=== PATIENT | male | born 1955 | race Caucasian/White ===

== ENCOUNTER 2021-08-05 08:51 | Day surgery (SDC) | payer MEDICARE, OTHER ==
[~2021-08-05] VITALS: Ht 185.4 cm; Wt 93.9 kg
[~2021-08-05 08:51] MED LIST: DEPO-TESTO200 MG/1 M; FAMO10 PO; HYDACE5 PO; NAPR500 PO; PROM25 PO
[2021-08-05] MEDS ORDERED: Aspirin325 MG (10:01)
== END 2021-08-05 11:44 | disposition home or self-care (01) ==
LOC: ORSCSDS 08:51
PROVIDERS: Internal Medicine Gastroenterology
PROC: 0DBK8ZX Excision of Ascending Colon, Via Natural or Artificial Opening Endoscopic, Diagnostic (ICD-10-PCS; principal; 2021-08-05 10:30)
PROC: 0DBC8ZX Excision of Ileocecal Valve, Via Natural or Artificial Opening Endoscopic, Diagnostic (ICD-10-PCS; principal; 2021-08-05 10:30)
PROC: 0DBN8ZX Excision of Sigmoid Colon, Via Natural or Artificial Opening Endoscopic, Diagnostic (ICD-10-PCS; principal; 2021-08-05 10:30)
PROC: 0DBM8ZX Excision of Descending Colon, Via Natural or Artificial Opening Endoscopic, Diagnostic (ICD-10-PCS; principal; 2021-08-05 10:30)
DX: Z12.11 Encounter for screening for malignant neoplasm of colon (principal); Z86.010 Personal history of colon polyps; D12.5 Benign neoplasm of sigmoid colon; D12.0 Benign neoplasm of cecum; D12.2 Benign neoplasm of ascending colon; D12.4 Benign neoplasm of descending colon; K57.30 Diverticulosis of large intestine without perforation or abscess without bleeding; K64.8 Other hemorrhoids; E11.9 Type 2 diabetes mellitus without complications; G47.30 Sleep apnea, unspecified; Z79.899 Other long term (current) drug therapy
CPT/HCPCS: 82947; 88305; J2704; J7120

== ENCOUNTER 2022-01-26 10:21 | Inpatient (IN) | payer MEDICARE, OTHER ==
[~2022-01-26] VITALS: Ht 185.4 cm; Wt 96.2 kg
[~2022-01-26 10:21] MED LIST changes: +Aspirin325 MG
[2022-01-26] MEDS ORDERED: METFORMIN HCL500 M3 PO (10:48)
[2022-01-26 10:55] LABS: BASOPHILS ABSOLUTE AUTO 0.07 K/mm3 (0.00-0.23); BASOPHILS PERCENT AUTO 1 % (0-2); EOSINOPHILS ABSOLUTE AUTO 0.32 K/mm3 (0.00-0.68); EOSINOPHILS PERCENT AUTO 5 % (0-6); Hematocrit 49.1 % (37.0-53.0); Hemoglobin 16.9 g/dL (13.5-17.5); IMMATURE GRAN ABSOLUTE AUTO 0.05 K/mm3 (0.00-0.10); IMMATURE GRAN PERCENT AUTO 1 % (0-1); LYMPHOCYTES ABSOLUTE AUTO 1.87 K/mm3 (0.84-5.20); LYMPHOCYTES PERCENT AUTO 30 % (21-46); MONOCYTES ABSOLUTE AUTO 0.67 K/mm3 (0.16-1.47); MONOCYTES PERCENT AUTO 11 % (4-13); Mean Corpuscular HGB 32.4 pg (26.0-34.0); Mean Corpuscular HGB Conc 34.4 g/dL (31.5-36.5); Mean Corpuscular Volume 94 fL (80-100); Mean Platelet Volume 10.5 fL (9.1-12.4); NEUTROPHILS ABSOLUTE AUTO 3.32 K/mm3 (1.96-9.15); NEUTROPHILS PERCENT AUTO 53 % (41-73); Platelet Count 165 K/mm3 (150-400); RDW Coefficient Variation 12.4 % (11.7-14.2); Red Blood Cell Count 5.22 M/mm3 (4.30-5.90)
[2022-01-26 10:55] LABS: Calcium, Ionized (POC) 1.16 mmol/L (1.10-1.46); Chloride (POC) 101 mmol/L (98-108); Glucose (ISTAT POC) 251 mg/dL (70-99); Potassium (POC) 3.9 mmol/L (3.5-5.5); Sodium (POC) 137 mmol/L (135-148); Total CO2 (POC) 25 mmol/L (21-32)
[2022-01-26 11:09] LABS: International Normalized Ratio 0.98; Prothrombin Time Results 10.3 Sec (9.7-11.5)
[2022-01-26 11:42] LABS: Albumin, Blood 4.1 g/dL (3.4-5.0); Albumin/Globulin Ratio 1.2 (0.8-1.8); Bilirubin, Total 0.8 mg/dL (0.1-1.0); Bun/Creatinine Ratio 21.6 (12.0-20.0); Calcium, Blood 9.8 mg/dL (8.5-10.1); Creatinine, Blood 0.97 mg/dL (0.60-1.20); Globulin, Blood 3.4 g/dL (2.2-4.0); Total Protein, Blood 7.5 g/dL (6.4-8.2)
--- NOTE | 2022-01-26 12:46 | NUR ---
ASSUMED CARE OF PT AT 1246. PT IS ALERT AND ORIENTED X4, ABLE TO RECALL RECENT AND REMOTE EVENTS. PT DENIES ANY CHEST PAIN AT THIS TIME. POST STENT PLACEMENT EKG OBTAINED, IN CHART. PT IS IN SR WITH HR IN THE 60-70'S, BLOOD PRESSURE IS STABLE. TR BAND TO RIGHT RADIAL ACCESS SITE PRESENT AND INFLATED, NO ACTIVE BLEEDING, SWELLING NOTED. PT DENIES ANY NUMBNESS/TINGLING TO RIGHT HAND AND DIGITS, GOOD CAP REFILL PRESENT. SHEATH TO RIGHT GROIN PRESENT WITH NS/HEPARIN TKO VIA PRESSURE BAG. SHEATH TO BE REMOVED ONCE PTT IS LESS THAN 40. NO ACTIVE BLEEDING/SWELLING TO RIGHT GROIN NOTED. PT ON RA WITH SPO2 ABOVE 90%, LUNG SOUNDS CLEAR T/O . PT USING URINAL AT BEDSIDE WITH ASSISTANCE. PT EDUCATED ON LIMB RESTRICTIONS. PT ORIENTED TO THE ROOM AND CALL LIGHT. BED AT LOWEST LEVEL WILL CONTINUE TO MONITOR PT T/O SHIFT
[2022-01-26] MEDS ORDERED: D3-5000125 MCG PO (13:17)
--- NOTE | 2022-01-26 18:40 | NUR ---
SHIFT SUMMARY: PT CONTINUES TO BE ALERT AND ORIENTED X4. PT CONTINUES TO DENY SOB/CHEST PAIN. PT ON RA, NO RESP DISTRESS NOTED AT THIS TIME. PT IN SR WITH HR IN THE 60-70'S. RIGHT GROIN SHEATH REMOVED AT 1807, MANUAL PRESSURE USED, HEMOSTASIS ACHEIVED AT 1830, SITE DRESSED WITH TEGADERM, NO ACTIVE BLEEDING, SWELLING OR HEMATOMA NOTED. TR BAND DEFLATED TO ZERO AT 1845 RIGHT RADIAL SITE, WILL PLACE TEGADERM DRESSING, NO ACTIVE BLEEDING OR HEMATOMA NOTED. PT DENIES ANY NUMBNESS/TINGLING TO RIGHT LEG AND RIGHT HAND. +2 PULSE TO RIGHT PEDAL SITE. PT ATE 75% OF DINNER, TOLERATING DIET AND THIN LIQUIDS AT THIS TIME, ACTIVE BOWEL TONES IN ALL QUADRANTS. PT USING URINAL W/O ISSUES. SISTER AT BEDSIDE. PT EDUCATED ON LIMB RESTRICTIONS. WILL CONTINUE TO MONITOR PT UNTIL REPORT IS GIVEN TO ONCOMING SHIFT.
--- NOTE | 2022-01-26 20:00 | NUR ---
ASSUMED CARE OF PT AT 1915. REPORT RECEIVED AT BEDSIDE. PT PRESENTS IN BED. SUPINE. RIGHT GROIN SITE WITHOUT OOZING OR HEMATOMA. RIGHT RADIAL SITE WITH TR BAND IN PLACE DEFLATED. NO OOZING OR HEMATOMA NOTED. DENIES CHEST PAIN OR PRESSURE. DID DO SOME TEACHING ON STENTS, AND STEMI. WILL REVIEW CHART AND PLAN OF CARE FOR THIS PT.
--- NOTE | 2022-01-26 23:22 | NUR ---
TEGRADERM PLACED OVER RADIAL PUNCTURE SITE. NO HEMATOM OR OOZING TO THIS SITE OR TO RIGHT GROIN SITE. WILL CONTINUE TO MONITOR. PT ABLE TO VOID Q.S. URINE USING URINAL.
--- NOTE | 2022-01-27 01:25 | NUR ---
PT COMPLETES RESTRICTION OF BEING SUPINE POST SHEATH REMOVAL. PT HAS ORTHOSTATIC BLOOD PRESSURES DONE. SEE FLOWSHEET FOR DETAILS. PT UP AND HAS AMBULATED IN HALLWAY WITH STANDBY. NO CHEST PAIN OR PRESSURE. NO DYSPNEA. AFTER RETURNING TO BED. GROIN AND RADIAL SITES CHECKED. NO HEMATOMA OR OOZING FROM SITES.
[2022-01-27 04:40] LABS: Hematocrit 43.8 % (37.0-53.0); Hemoglobin 14.7 g/dL (13.5-17.5); Mean Corpuscular HGB 32.7 pg (26.0-34.0); Mean Corpuscular HGB Conc 33.6 g/dL (31.5-36.5); Mean Corpuscular Volume 98 fL (80-100); Mean Platelet Volume 10.4 fL (9.1-12.4); Platelet Count 127 K/mm3 (150-400); RDW Coefficient Variation 12.5 % (11.7-14.2); RDW Standard Deviation 45.4 fL (35.1-46.3); Red Blood Cell Count 4.49 M/mm3 (4.30-5.90)
[2022-01-27 05:08] LABS: Bun/Creatinine Ratio 27.4 (12.0-20.0); Calcium, Blood 8.8 mg/dL (8.5-10.1); Creatinine, Blood 0.84 mg/dL (0.60-1.20); Potassium, Blood 4.1 mmol/L (3.5-5.5)
--- NOTE | 2022-01-27 06:07 | NUR ---
PT IS ABLE TO MOVE ABOUT BED ON HIS OWN. NO HEMATOMA OR OOZING FROM RADIAL OR R FEMORAL SITE. GOOD CMS CHECKS. PT HAS BEEN UP AND AMBULATED EARLIER IN NIGHT. TOLERATED THIS VERY WELL. NO COMPLAINTS OF CHEST PAIN OR PRESSURE. WILL CONTINUE TO MONITOR PT, AND WILL REPORT OFF TO ONCOMING RN.
--- NOTE | 2022-01-27 08:09 | NUR ---
Assumed care of pt at 0700. Report received from Andreas RIVAS. Pt A&O x 4. Answers questions, follows commands, verbalizes needs. Pleasant and cooperative with care. Sinus bradycardia per monitor. BP stable. SpO2 90% or greater RA. R radial artery access site, covered with opsite. R femoral artery access site, covered with tegaderm, hemostasis achieved with manual pressure per report. Color, sensation, pulses, capillary refill equal BUE and BLE.
--- NOTE | 2022-01-27 18:32 | NUR ---
SUMMARY No acute changes to initial assessment. Pt is PCU status. He is A&O x 4. Independent in room and often ambulates outside of unit. Telemetry monitoring in place. Plan for patient to go back to cardiac catheterization technician tomorrow for additional stenting. Denies chest pain or shortness of breath. R femoral and radial sites stable. No new bruising, drainage, or hematoma. Color, sensation, pulses, capillary refill equal BUE and BLE. Room air. SpO2 90% or greater.
--- NOTE | 2022-01-28 05:24 | NUR ---
PT. WAS STABLE OVERNIGHT, O2 MAINTAINING ABOVE 92% ON RA AND PT. WORE CPAP OVERNIGHT. BP HAS BEEN WNL AND STABLE OVERNIGHT, HR SINUS DIONICIO OF 50S-60S. PT. OUT OF BED AMBULATING IN ROOM WITH STANDBY ASSISTANCE. CATH SITES IN TACT WITH NO ADDITIONAL BLEEDING. PT. HAS NO COMPLAINTS AT THIS TIME.
[2022-01-28 08:30] LABS: Hematocrit 42.9 % (37.0-53.0); Hemoglobin 14.6 g/dL (13.5-17.5); Mean Corpuscular HGB 32.7 pg (26.0-34.0); Mean Corpuscular Volume 96 fL (80-100); Mean Platelet Volume 10.4 fL (9.1-12.4); Platelet Count 127 K/mm3 (150-400); RDW Coefficient Variation 12.8 % (11.7-14.2); RDW Standard Deviation 45.6 fL (35.1-46.3); Red Blood Cell Count 4.47 M/mm3 (4.30-5.90); White Blood Cell Count 6.47 K/mm3 (4.00-11.30)
[2022-01-28 08:45] LABS: Bun/Creatinine Ratio 27.6 (12.0-20.0); Calcium, Blood 8.7 mg/dL (8.5-10.1); Creatinine, Blood 0.8 mg/dL (0.60-1.20); Potassium, Blood 4.1 mmol/L (3.5-5.5)
--- NOTE | 2022-01-28 13:25 | NUR ---
Patient back to room from track repair laborer. Reportedly received 3 new stents and right groin site had perclose for hemostasis. Pt verbalizes understanding of activity limitations with groin access.
--- NOTE | 2022-01-28 18:41 | NUR ---
SUMMARY 3 new stents this shift. R groin site stable currently, free of hematoma. Color, sensations, pulses, capillary refill equal BUE and BLE. Pt on room air. No additional changes to initial assessment.
--- NOTE | 2022-01-29 05:49 | NUR ---
SHIFT SUMMARY PT BROUGHT TO PCU ROOM 15 FROM ICU 5. PT IS S/P [place] AND HEART CATH. PT HAS A RIGHT ARM SITE AND A RIGHT GROIN SITE THAT HAS A SMALL AMOUNT OF DRAINAGE. THE SURROUNDIND TISSUE IS SOFT AND NONTENDER TO PALPATION. PULSES AND CAP REFILL ARE WNL DISTALLY. PT IS INDEPENDENT IN AMBULATION. NSR ON THE MONITOR. BP IS WNL. PT ANTICIPATED DISCHARGE TODAY. VITALS HAVE BEEN STABLE. WILL CONTINUE TO MONITOR.
[2022-01-29] MEDS ORDERED: ACET325 PO (13:24)
[2022-01-29] MEDS ORDERED: ASPI81CH PO (13:24)
[2022-01-29] MEDS ORDERED: ATOR40TA PO (13:24)
[2022-01-29] MEDS ORDERED: METO25 PO (13:25)
[2022-01-29] MEDS ORDERED: TICA90TA PO (13:26)
--- NOTE | 2022-01-29 14:21 | NUR ---
DISCHARGE SUMMARY PT A&OX4, VSS/RA, KATHY PO, VOIDING, AMB INDEPENDENTLY IN ROOM/BRP/HALLWAY, UP TO CHAIR T/O SHIFT, DRESSED SELF. IV DC'D. DC INS PROVIDED TO PT AND S.O. PT REP UNDERSTANDING THOSE INSTRUCTIONS INCLUDING FU WITH CARDIOLOGY AND PCP, NEW MEDS (AT [place])/WHEN TO START MEDS AND JOURNALING BP AND MED INTAKE. LEFT FLOOR (DECLINED WC) WITH S.O. AND GRANDSON, WITH ALL PERSONAL POSSESSIONS INCLUDING DC PACKET.
== END 2022-01-29 14:20 | disposition home or self-care (01) | DRG 246 ==
LOC: ER 10:21 → ICUW 10:45 → ICUE 12:45 → PCU 01-28 22:34
PROVIDERS: Student in an Organized Health Care Education/Training Program; ADMIT Internal Medicine Interventional Cardiology
PROC: 02C03ZZ Extirpation of Matter from Coronary Artery, One Artery, Percutaneous Approach (ICD-10-PCS; 2022-01-26)
PROC: B2111ZZ Fluoroscopy of Multiple Coronary Arteries using Low Osmolar Contrast (ICD-10-PCS; 2022-01-26)
PROC: B41C1ZZ Fluoroscopy of Pelvic Arteries using Low Osmolar Contrast (ICD-10-PCS; 2022-01-26)
PROC: 027034Z Dilation of Coronary Artery, One Artery with Drug-eluting Intraluminal Device, Percutaneous Approach (ICD-10-PCS; 2022-01-26)
PROC: B240ZZ3 Ultrasonography of Single Coronary Artery, Intravascular (ICD-10-PCS; 2022-01-26)
PROC: 027135Z Dilation of Coronary Artery, Two Arteries with Two Drug-eluting Intraluminal Devices, Percutaneous Approach (ICD-10-PCS; principal; 2022-01-28)
PROC: 02F03ZZ Fragmentation in Coronary Artery, One Artery, Percutaneous Approach (ICD-10-PCS; 2022-01-28)
DX: I21.19 ST elevation (STEMI) myocardial infarction involving other coronary artery of inferior wall (principal); E11.9 Type 2 diabetes mellitus without complications; G47.30 Sleep apnea, unspecified; Z87.891 Personal history of nicotine dependence; Z88.8 Allergy status to other drugs, medicaments and biological substances; Z79.84 Long term (current) use of oral hypoglycemic drugs; Z79.82 Long term (current) use of aspirin
CPT/HCPCS: 36415; 76937; 80047; 80048; 80053; 82947; 83690; 84484; 85014; 85025; 85027; 85347; 85610; 85730; 92978; 93005; 93010; 93306; 93454; 94660; 94762; 96374; 99152; 99153; 99285-25; A9270; C1725; C1753; C1757; C1760; C1761; C1769; C1874; C1887; C1894; C9600; C9601; C9602; C9606; J0282; J0461; J1644; J1815; J2250; J3010; J3246; J7030; J7040; J7050; Q9967